=== PATIENT | male | born 1950 | race Caucasian/White ===

== ENCOUNTER 2018-06-14 07:55 | Day surgery (SDC) | payer OTHER ==
[~2018-06-14] VITALS: Ht 188 cm; Wt 145.2 kg
[~2018-06-14 07:55] MED LIST: ALOGLIPTIN25 MG PO; AMLODIPINE BESY10 MG PO; BENADRYL25 MG PO; COLCHICINE0.6 M1 PO; DOCUSATE SODIU100 M1 PO; FUROSEMIDE20 MG PO; GLIPIZIDE10 MG PO; HYDROCHLOROTHIA25 MG PO; NAPROXEN500 MG PO; OXYCODONE HCL10 MG PO; VITAMIN D350000 UNIT PO
--- NOTE | 2018-06-14 10:21 | NUR ---
06/14/18 1021 Zonia Celeste 1011 PT ARRIVED IN PACU SLEEPY. L FOOT ELEVATED IN BOOT. 1020 BLOOD SUGAR 174 ON ARRIVAL.
[2018-06-14] MEDS ORDERED: OXYCODONE HCL10 MG PO (12:10)
--- NOTE | 2018-06-14 12:41 | NUR ---
1225: PATIENT EATING LUNCH. VS CHECKED. STATES NAUSEA IMPROVED. O2 TURNED OFF. PATIENT ON ROOM AIR. AT BEDSIDE. CALL LIGHT WITHIN REACH.
--- NOTE | 2018-06-14 13:38 | NUR ---
1325: PATIENT TOLERATED LUNCH. PATIENT MAINTAINING SATS ON ROOM AIR. PATIENT DECLINES PAIN PILL AT THIS TIME. PATIENT DENIES URGE TO VOID. AT BEDSIDE. CALL LIGHT WITHIN REACH.
--- NOTE | 2018-06-14 14:49 | NUR ---
1340: RIGHT HAND IV DC'D WNL. TIP INTACT. DRESSING APPLIED. 1430: PATIENT ABLE TO VOID 250 ML PER URINAL. VS CHECKED. RAC IV DC'D WNL. TIP INTACT. DRESSING APPLIED. DISCHARGE INSTRUCTIONS GIVEN TO PATIENT AND . PATIENT ASSISTED TO GET DRESSED. 1440: PATIENT ASSISTED TO TRANSFER FROM STRETCHER TO WHEELCHAIR. PATIENT DISCHARGED TO HOME WITH VIA WHEELCHAIR.
--- NOTE | 2018-06-16 07:16 | OR ---
[facility] [address] [facility] [place], [place] [address] Signed DATE OF OPERATION: 06/14/2018 SURGEON: Cuba Miranda MD PREOPERATIVE DIAGNOSIS: Bimalleolar ankle fracture, left. POSTOPERATIVE DIAGNOSIS: Bimalleolar ankle fracture, left. PROCEDURE: Open reduction and internal fixation of bimalleolar ankle fracture, left. ANESTHESIA: General. SPECIMENS AND COMPLICATIONS: There were no specimens or complications. TOURNIQUET TIME: About 40 minutes. WHAT WAS DONE: The patient was taken to the operating room. After anesthesia was induced and airway secured, the patient was positioned prepped and draped in routine sterile fashion. The leg was exsanguinated with elevation and pneumatic tourniquet about the thigh was inflated to 300 mmHg pressure. We then made a straight lateral approach over the distal fibula, using his old scar as a guide. The skin was divided sharply. Subcutaneous tissue was bluntly spread. The fracture site was identified and gently cleaned with a small curette and a small rongeur. We then obtained provisional reduction and held it with a clamp and secured it with a single lag screw. We then placed an eight hole 1/3 semitubular buttress plate laterally which gave us an excellent reconstruction. The wound was gently irrigated and closed in a standard fashion. We then made a small stab wound medially and under fluoroscopic control introduced a guidewire through the tip of the medial malleolus across the fracture site and into the more proximal metaphysis. We then placed a single 4.5 mm cannulated screw. Again AP and lateral fluoroscopy showed good alignment, good position, and a stable construct. The wound was gently irrigated, closed with micki and a sterile dressing applied. A bulky dressing was placed. He was placed back in his CAM walker boot. He was awakened and taken to the recovery room where Electronically Signed By: CUBA MIRANDA MD 06/16/18 0716 PATIENT NAME: JOSEFA QUIROGA OPERATIVE REPORT DATE OF : 46 REPORT #: [id number] PHYSICIAN: CUBA MIRANDA MD PCP: NO PRIMARY CARE PHYSICIAN REPORT IS CONFIDENTIAL AND NOT TO BE RELEASED WITHOUT AUTHORIZATION [address] [address] Signed he arrived in stable condition. Counts were correct and antibiotic protocols were followed. Cuba Miranda MD WFB/MODL /[id number] Copies: ~ Electronically Signed By: CUBA MIRANDA MD 06/16/18 0716 PATIENT NAME: JOSEFA QUIROGA OPERATIVE REPORT DATE OF : 46 REPORT #: [id number] PHYSICIAN: CUBA MIRANDA MD PCP: NO PRIMARY CARE PHYSICIAN REPORT IS CONFIDENTIAL AND NOT TO BE RELEASED WITHOUT AUTHORIZATION
== END 2018-06-14 14:40 | disposition home or self-care (01) ==
LOC: DS 07:55
PROVIDERS: Orthopaedic Surgery
PROC: 0QSH04Z Reposition Left Tibia with Internal Fixation Device, Open Approach (ICD-10-PCS; principal; 2018-06-14 09:10)
DX: S82.842A Displaced bimalleolar fracture of left lower leg, initial encounter for closed fracture (principal); I10 Essential (primary) hypertension; E11.9 Type 2 diabetes mellitus without complications; M10.9 Gout, unspecified; E66.9 Obesity, unspecified; Z88.6 Allergy status to analgesic agent; Z79.899 Other long term (current) drug therapy; Z79.4 Long term (current) use of insulin; W18.30XA Fall on same level, unspecified, initial encounter
CPT/HCPCS: 01480; 64447; 64450; 73600; 76942; C1713; J0330; J0690; J2405; J2704; J2795; J3010; J7120